=== PATIENT | female | born 1935 | race Caucasian/White ===

== ENCOUNTER 2019-03-21 23:53 | Emergency (ER) | payer MEDICARE, OTHER ==
[~2019-03-21] VITALS: Ht 162.6 cm; Wt 96.7 kg
[2019-03-22 00:37] LABS: BASO % 0.2 % (0.0-1.0); EOS # 0.1 10^3/uL (0.0-0.50); EOS % 0.7 % (0.0-3.0); HEMATOCRIT 39.3 % (36.0-47.0); HEMOGLOBIN 12.6 g/dl (12.0-15.5); LYMPH # 0.4 10^3/uL (1.5-4.5); MEAN CORPUSCULAR HEMOGLOBIN 30.1 pg (27.0-33.0); MEAN CORPUSCULAR HGB CONC 32.1 g/dl (32.0-36.5); MEAN CORPUSCULAR VOLUME 93.8 fl (80.0-96.0); MONO # 0.6 10^3/uL (0.0-0.8); MONO % 5.6 % (0.0-5.0); NEUTROPHILS # 8.9 10^3/uL (1.8-7.7); NEUTROPHILS % 89.2 % (36.0-66.0); PLATELET COUNT, AUTOMATED 213 10^3/uL (150-450); RED BLOOD COUNT 4.19 10^6/uL (4.00-5.40)
[2019-03-22 00:41] LABS: ALBUMIN 3.8 GM/DL (3.2-5.2); ALT/SGPT 22 U/L (12-78); BILIRUBIN,DIRECT < 0.1 MG/DL (0.0-0.2); BILIRUBIN,TOTAL 0.3 MG/DL (0.2-1.0); BLOOD UREA NITROGEN 26 MG/DL (7-18); CALCIUM LEVEL 8.3 MG/DL (8.8-10.2); CARBON DIOXIDE LEVEL 26 MEQ/L (21-32); CHLORIDE LEVEL 107 MEQ/L (98-107); CREATININE FOR GFR 0.98 MG/DL (0.55-1.30); GLOMERULAR FILTRATION RATE 57.4 (>32); GLUCOSE, FASTING 167 MG/DL (70-100); LIPASE 132 U/L (73-393); SODIUM LEVEL 144 MEQ/L (136-145); TOTAL PROTEIN 6.6 GM/DL (6.4-8.2)
[2019-03-22] MEDS ORDERED: CYCL10TA PO (00:41)
[2019-03-22] MEDS ORDERED: ALBU17IN2 INH (00:41)
[2019-03-22] MEDS ORDERED: METF500T13 PO (00:41)
[2019-03-22] MEDS ORDERED: HYDR-3713 PO (00:41)
[2019-03-22] MEDS ORDERED: ASPI81TA26 PO (00:41)
[2019-03-22] MEDS ORDERED: ALPR0.25 PO (00:41)
[2019-03-22] MEDS ORDERED: REPA1.7I SC (00:41)
[2019-03-22] MEDS ORDERED: CYAN1000VL IM (00:41)
[2019-03-22] MEDS ORDERED: METO1TAB32 PO (00:41)
[2019-03-22 02:30] VITALS: BP 119/57
[2019-03-22] MEDS ORDERED: LOMOTIL 2.5MG/0.025MG TABLET PO ONE (02:30)
[2019-03-22] MEDS ORDERED: NS 1,000 ML IV ONE ×2 (02:45)
--- NOTE | 2019-03-22 07:08 | ECGEPIP ---
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
== END 2019-03-22 02:53 | disposition home or self-care (01) ==
LOC: M ED 23:53
DX: K52.9 Noninfective gastroenteritis and colitis, unspecified (principal); R42 Dizziness and giddiness; E11.9 Type 2 diabetes mellitus without complications; I25.10 Atherosclerotic heart disease of native coronary artery without angina pectoris; Z95.5 Presence of coronary angioplasty implant and graft; Z79.899 Other long term (current) drug therapy; Z79.84 Long term (current) use of oral hypoglycemic drugs; Z79.82 Long term (current) use of aspirin